=== PATIENT | female | born 1980 | race Caucasian/White ===

== ENCOUNTER 2016-08-31 16:04 | Emergency (ER) | payer OTHER ==
--- NOTE | 2016-08-31 16:52 | EDPHY ---
H & P Stated Complaint: vomit diarrhea since this am, -daughter with same Time Seen by Provider: 08/31/16 16:25 HPI/ROS: CHIEF COMPLAINT: Nausea, vomiting, diarrhea HISTORY OF PRESENT ILLNESS: This patient is a 35 year old female arriving with her family complaining of nausea and diarrhea onset this morning. Her 9-month old daughter has been experiencing GI upset symptoms since . The patient began feeling nauseous this morning after waking, and has had 6-7 episodes of diarrhea today. She vomited around 16:00, one hour ago. She denies fever, hematochezia, or other associated symptoms. Her daughter is entirely breast fed. She denies the possibility of a current , and has an IUD placed. REVIEW OF SYSTEMS: A ten point review of systems was performed. The patient had a URI 1 week ago, resolved. ROS otherwise negative with the exception of the items mentioned in the HPI. - Personal History LMP (Females 10-55): IUD In Place Current Tetanus/Diphtheria Vaccine: Unsure Current Tetanus Diphtheria and Acellular Pertussis (TDAP): Unsure - Medical/Surgical History Hx Asthma: No Hx Chronic Respiratory Disease: No Hx Diabetes: No Hx Cardiac Disease: No Hx Renal Disease: No Hx Cirrhosis: No Hx Alcoholism: No Hx HIV/AIDS: No Hx Splenectomy or Spleen Trauma: No Other PMH: Hx of hip fracture, GERD, - Social History Smoking Status: Never smoked Drug Use: None Additional Social History: . Lives in [place]. - Physical Exam Exam: General Appearance: Alert. Vital signs reviewed. Heart rate 122. Eyes: Pupils equal and round, no conjunctival injection, no discharge. Anicteric. ENT, Mouth: Mucous membranes dry. No oropharyngeal erythema or edema. Neck: No lymphadenopathy, supple. Respiratory: Lungs are clear to auscultation; no wheezes, rales, or rhonchi. Cardiovascular: Tachycardic, regular rhythm; no murmur, rub, or gallop. Gastrointestinal: Abdomen is soft and nontender, no masses or organomegaly, bowel sounds normal. Skin: Warm and dry, no rashes on exposed skin, normal color. Back: Nontender to palpation over the thoracolumbar spine. No CVAT. Extremities: No lower extremity edema, no calf tenderness or swelling. Neurological: Alert and oriented. Moving all four extremities easily and equally. Psychiatric: Normal affect. Constitutional: Initial Vital Signs Temperature (C) 37.5 C 08/31/16 16:07 Heart Rate 122 H 08/31/16 16:07 Respiratory Rate 16 08/31/16 16:07 Blood Pressure 117/92 H 08/31/16 16:07 O2 Sat (%) 98 08/31/16 16:07 O2 Delivery Mode Room Air Allergies/Adverse Reactions: No Known Allergies Allergy (Unverified 11/09/15 04:48) Home Medications: Medication Instructions Recorded Docusate Sodium [Colace 100 MG (*)] 100 mg PO BID PRN #0 cap 11/11/15 Ibuprofen [Motrin (*)] 600 mg PO Q6 PRN #0 tab 11/11/15 Medical Decision Making ED Course/Re-evaluation: This patient is a 35 year old female presenting with nausea, vomiting, and diarrhea onset this morning. Her daughter has a two-day history of diarrhea, beginning late night. She reports she has had multiple episodes of diarrhea today. She is tachycardic at 122, and physical exam reveals dry mucous membranes. IV established. Plan to administer 2L IV NS for rehydration and 4mg IV Zofran to treat nausea. 17:45 Reassessed patient. She will be discharged home in good condition following completion of 2L IV NS. 19:20. Reassessed patient. She is feeling better, and appears well-hydrated. She will follow up with her PCP, Dr. Coffman for symptoms unresolved in the next 1-2 days. She remains slightly tachycardic at [place] but feels that she can return home and continue to rehydrate herself. She will continue to breast-feed her daughter. Return precautions discussed. The patient is comfortable with this plan. Differential Diagnosis: I considered a ddx of gastroenteritis, cholecystitis, pancreatitis, appendicitis , enteritis. - Data Points Medications Given: Discontinued Medications Sodium Chloride (Ns) 1,000 mls @ 0 mls/hr IV ONCE ONE PRN Reason: Wide Open Stop: 08/31/16 17:14 Last Admin: 08/31/16 17:32 Dose: 1,000 mls Sodium Chloride (Ns) 1,000 mls @ 0 mls/hr IV ONCE ONE PRN Reason: Wide Open Stop: 08/31/16 17:14 Last Admin: 05/20/17 17:40 Dose: 1,000 mls Ondansetron HCl (Zofran) 4 mg IVP EDNOW ONE Stop: 08/31/16 17:14 Last Admin: 08/31/16 17:40 Dose: 4 mg Departure - Departure Disposition: Home, Routine, Self-Care Clinical Impression: Acute gastroenteritis Condition: Good Instructions: Ondansetron (By mouth), Dehydration (ED), Gastroenteritis (ED) Additional Instructions: 1. Follow up with Dr. Coffman for symptoms unresolved in the next 1-2 days. 2. Stay well-hydrated. 3. Return to the ED for fever, chills, blood in your stool, lightheadedness or fainting, or other worsening of condition. Referrals: Primitivo Coffman MD [Primary Care Provider] - As per Instructions Report Scribed for: Loreta Olivo Report Scribed by: Alejandra Lainez Date of Report: 08/31/16 Time of Report: 17:55 Physician Review and Approval Statement: 08/31/16 16:52 Portions of this note were transcribed by the medical educator. I, Dr. Loreta Olivo, personally performed the history, physical exam, and medical decision- making; and confirmed the accuracy of the information in the transcribed note.
[2016-08-31] MEDS ORDERED: ONDANSETRON 4 MG/2 ML VIAL IVP ONE (17:13)
[2016-08-31] MEDS ORDERED: NS 1,000 ML IV ONE ×2 (17:13)
[2016-08-31] MEDS ORDERED: ONDANSETRON 4MG PREPACK#2 BTL TAKEHOME ONE ×2 (19:22→19:27)
[2016-08-31 19:25] VITALS: O2SAT 96
[2016-08-31 19:27] VITALS: BP 112/78; PULSE 112; RESP 18; TEMP 98.4
== END 2016-08-31 19:30 | disposition home or self-care (01) ==
DX: K52.9 Noninfective gastroenteritis and colitis, unspecified (principal)
CPT/HCPCS: 96374

== ENCOUNTER 2017-04-02 10:54 | Emergency (ER) | payer OTHER ==
[2017-04-02 11:02] VITALS: TEMP 98.1
[2017-04-02 11:28] LABS: % IMMATURE GRANULYOCYTES 0.2 % (0.0-1.1); ABSOLUTE IMMATURE GRANULOCYTES 0.01 10^3/uL (0.00-0.10); ADD DIFF? NO; ADD MORPH? NO; ADD SCAN? NO; ATYPICAL LYMPHOCYTE FLAG 20 (0-99); FRAGMENT RBC FLAG 0 (0-99); HEMATOCRIT 41.9 % (38.0-47.0); HEMOGLOBIN 14.5 g/dL (12.6-16.3); LEFT SHIFT FLG 0 (0-99); LIPEMIA HEMOLYSIS FLAG 90 (0-99); MEAN CELL HEMOGLOBIN 30.9 pg (27.9-34.1); MEAN CELL HEMOGLOBIN CONCENTR. 34.6 g/dL (32.4-36.7); MEAN CELL VOLUME 89.1 fL (81.5-99.8); MEAN PLATELET VOLUME 9.4 fL (8.7-11.7); PLATELET CLUMPS FLAG 0 (0-99); PLATELET COUNT 242 10^3/uL (150-400); RED CELL DISTRIBUTION WIDTH 12.5 % (11.5-15.2)
[2017-04-02 11:30] LABS: COLOR YELLOW; LEUKOCYTE ESTERASE,URINE 1+ (NEGATIVE); NITRITE,URINE NEGATIVE (NEGATIVE)
[2017-04-02 11:38] LABS: BACTERIA TRACE /hpf (NONE SEEN)
--- NOTE | 2017-04-02 11:51 | EDPHY ---
H & P Time Seen by Provider: 04/02/17 11:23 HPI/ROS: CHIEF COMPLAINT: Abdominal pain HISTORY OF PRESENT ILLNESS: 36-year-old female presents to the emergency department with left lower quadrant abdominal pain that has become more localized and worse over last 2 days. She states that over last few days she had initially some intermittent lower diffuse abdominal pain. She states now it is localized in the left lower side. No back pain. No chest pain or difficulty breathing. No reported trauma. She has a Mirena IUD. She does not get her period with a Mirena IUD. She is 1 para 1 AB 0. No urinary symptoms. The pain has been getting worse in her left lower quadrant. No back pain. REVIEW OF SYSTEMS: Constitutional: No fever, no chills. Eyes: No double or blurry vision. ENT: No sore throat. Respiratory: No cough, no shortness of breath. Cardiac: No chest pain. Gastrointestinal: Abdominal pain as above. No vomiting or diarrhea. Genitourinary: No dysuria. Musculoskeletal: No neck or back pain. Skin: No rashes. Neurological: No headache. Past Medical/Surgical History: 1 para 1 AB 0 Social History: and lives in [place] Smoking Status: Never smoked Physical Exam: General Appearance: Alert, no distress. Afebrile. No apparent distress. Eyes: Pupils equal and round. Extraocular motions are all intact. ENT: Mouth: Mucous membranes moist. Respiratory: No wheezing, rhonchi, or rales, lungs are clear to auscultation. Cardiovascular: Regular rate and rhythm. Gastrointestinal: Abdomen is soft. She has tenderness with palpation in the left lower quadrant. There is no masses, rebound or guarding noted. No CVA tenderness noted bilaterally. Neurological: Alert and oriented x 3, cranial nerves II through XII grossly intact Skin: Warm and dry, no rashes. Musculoskeletal: Nontender to palpate along the cervical, thoracic or lumbar spine. Neck is supple. Extremities: Full range of motion and no peripheral edema. Psychiatric: Patient is oriented X 3, there is no agitation. Constitutional: Initial Vital Signs Temperature (C) 36.7 C 04/02/17 10:59 Heart Rate 99 04/02/17 10:59 Respiratory Rate 16 04/02/17 10:59 Blood Pressure 142/94 H 04/02/17 10:59 O2 Sat (%) 96 12/20/17 10:59 O2 Delivery Mode Room Air Allergies/Adverse Reactions: No Known Allergies Allergy (Unverified 04/02/17 10:59) Medical Decision Making - Diagnostics Imaging Results: Imaging Impressions Pelvic/Renal Ultrasound 04/02/17 11:45 Impression: 1. IUD appears in good position. 2. Prominent heterogenous endometrial thickening at 16 mm. 3. No ovarian torsion or significant free fluid. 4. No adnexal masses. 5. Prominent left adnexal veins suggesting pelvic congestion. Findings and recommendations discussed with Emergency Department physician, Adriana Smith PA-C at 1245 hours on April 02, 2017. Final report concurs with initial preliminary interpretation. Imaging: Discussed imaging studies w/ [facility] consultant Radiologist ED Course/Re-evaluation: 36-year-old female presents to the emergency department with left lower quadrant abdominal pain. The patient has reproducible pain with palpation. Pelvic ultrasound was ordered which revealed normal appearing IUD in good placement. No evidence of ovarian cyst, ovarian torsion or ectopic . HCG was negative. On ultrasound however she did have evidence of venous congestion syndrome with prominent veins in the left pelvis. I spoke with Dr. More Pathak OBGYN on-call, who did not recommend any other further imaging. She will see her in follow-up in the office. This was discussed with the patient. She was also given Toradol 30 mg IV is comfortable being discharged home. She was given precautions and told to return if she developed any other change in symptoms, worsening abdominal pain, vomiting, fever, or if she felt worse in any way. Differential Diagnosis: Including but not limited to ovarian cyst, ovarian torsion, ectopic , urinary tract infection, pyelonephritis, kidney stone - Data Points Laboratory Results: Laboratory Results 04/02/17 11:15 04/02/17 04/02/17 04/02/17 11:15 11:15 11:11 WBC 5.06 10^3/uL 10^3/uL (3.80-9.50) RBC 4.70 10^6/uL 10^6/uL (4.18-5.33) Hgb 14.5 g/dL g/dL (12.6-16.3) POC Hgb 14.6 gm/dL gm/dL (12.6-16.3) Hct 41.9 % % (38.0-47.0) POC Hct 43 % % (38-47) MCV 89.1 fL fL (81.5-99.8) MCH 30.9 pg pg (27.9-34.1) MCHC 34.6 g/dL g/dL (32.4-36.7) RDW 12.5 % % (11.5-15.2) Plt Count 242 10^3/uL 10^3/uL (150-400) MPV 9.4 fL fL (8.7-11.7) Neut % (Auto) 57.9 % % (39.3-74.2) Lymph % (Auto) 30.6 % % (15.0-45.0) Ramsey % (Auto) 9.3 % % (4.5-13.0) Eos % (Auto) 1.4 % % (0.6-7.6) Baso % (Auto) 0.6 % % (0.3-1.7) Nucleat RBC Rel Count 0.0 % % (0.0-0.2) Absolute Neuts (auto) 2.93 10^3/uL 10^3/uL (1.70-6.50) Absolute Lymphs (auto) 1.55 10^3/uL 10^3/uL (1.00-3.00) Absolute Monos (auto) 0.47 10^3/uL 10^3/uL (0.30-0.80) Absolute Eos (auto) 0.07 10^3/uL 10^3/uL (0.03-0.40) Absolute Basos (auto) 0.03 10^3/uL 10^3/uL (0.02-0.10) Absolute Nucleated RBC 0.00 10^3/uL 10^3/uL (0-0.01) Immature Gran % 0.2 % % (0.0-1.1) Immature Gran # 0.01 10^3/uL 10^3/uL (0.00-0.10) POC Sodium 143 mEq/L mEq/L (134-144) POC Potassium 3.6 mEq/L mEq/L (3.3-5.0) POC Chloride 102 mEq/L mEq/L (97-110) POC BUN 13 mg/dL mg/dL (7-23) POC Creatinine 0.7 mg/dL mg/dL (0.6-1.0) POC Glucose 93 mg/dL mg/dL (70-100) Beta HCG, Qual NEGATIVE Urine Color Urine Appearance Urine pH Ur Specific [place] Urine Protein Urine Ketones Urine Blood Urine Nitrate Urine Bilirubin Urine Urobilinogen Ur Leukocyte Esterase Urine RBC Urine WBC Ur Epithelial Cells Urine Bacteria Urine Glucose 04/02/17 11:05 WBC RBC Hgb POC Hgb Hct POC Hct MCV MCH MCHC RDW Plt Count MPV Neut % (Auto) Lymph % (Auto) Ramsey % (Auto) Eos % (Auto) Baso % (Auto) Nucleat RBC Rel Count Absolute Neuts (auto) Absolute Lymphs (auto) Absolute Monos (auto) Absolute Eos (auto) Absolute Basos (auto) Absolute Nucleated RBC Immature Gran % Immature Gran # POC Sodium POC Potassium POC Chloride POC BUN POC Creatinine POC Glucose Beta HCG, Qual Urine Color YELLOW Urine Appearance HAZY Urine pH 7.0 (5.0-7.5) Ur Specific [place] 1.009 (1.002-1.030) Urine Protein NEGATIVE (NEGATIVE) Urine Ketones NEGATIVE (NEGATIVE) Urine Blood NEGATIVE (NEGATIVE) Urine Nitrate NEGATIVE (NEGATIVE) Urine Bilirubin NEGATIVE (NEGATIVE) Urine Urobilinogen NEGATIVE EU EU (0.2-1.0) Ur Leukocyte Esterase 1+ H (NEGATIVE) Urine RBC 1-3 /hpf /hpf (0-3) Urine WBC 10-15 /hpf H /hpf (0-3) Ur Epithelial Cells 1+ /lpf /lpf (NONE-1+) Urine Bacteria TRACE /hpf H /hpf (NONE SEEN) Urine Glucose NEGATIVE (NEGATIVE) Medications Given: Discontinued Medications Ketorolac Tromethamine (Toradol) 30 mg IVP EDNOW ONE Stop: 04/02/17 13:22 Last Admin: 04/02/17 13:27 Dose: 30 mg Point of Care Test Results: 04/02/17 11:11 POC Sodium 143 POC Potassium 3.6 POC Chloride 102 POC BUN 13 POC Creatinine 0.7 POC Glucose 93 Departure - Departure Disposition: Home, Routine, Self-Care Clinical Impression: Abdominal pain Qualifiers: Abdominal location: left lower quadrant Qualified Code(s): R10.32 - Left lower quadrant pain Condition: Good Instructions: Acute Abdominal Pain (ED) Additional Instructions: Abdominal Pain: Return to the Emergency Department immediately for increasing pain, fever, vomiting, or if not completely better in 8-12 hours. You have evidence of pelvic congestion syndrome with prominent veins on the left side. This could be an incidental finding. You can follow up with your OBGYN to discuss this. Ibuprofen 600 mg every 8 hr as needed for pain. Referrals: Vickie Tejeda MD [Medical Doctor] - 1 day, if not improved
[2017-04-02 12:47] VITALS: BP 118/79; PULSE 84; RESP 18; O2SAT 97
[2017-04-02] MEDS ORDERED: KETOROLAC 30 MG/1 ML SDV IVP ONE (13:21)
[2017-04-02] MEDS ORDERED: KETOROLAC 15 MG/1 ML SDV ONE (13:25)
== END 2017-04-02 13:54 | disposition home or self-care (01) ==
DX: R10.32 Left lower quadrant pain (principal)
CPT/HCPCS: 82947-QW; 96374; J1885

== ENCOUNTER → 2018-09-16 | Outpatient (CLI) | payer OTHER | LOC: FIMAGING 16:30 ==